=== PATIENT | female | born 1965 | race Caucasian/White ===

== ENCOUNTER 2022-09-27 09:46 | Outpatient (REF) | payer OTHER, SELFPAY ==
[2022-09-27 11:25] LABS: MANUAL DIFF FLAG NO
[2022-09-27 12:11] LABS: Basophils Percent Auto 0.7 % (0-2); Eosinophils Percent Auto 0.5 % (0-4); Hematocrit 37.1 % (37.0-47.0); Hemoglobin 11.9 g/dl (12.0-16.0); Imm Gran Abs Auto 0.02 X10*3/uL (0.00-0.03); Imm Gran Pct Auto 0.3 % (0.0-0.4); Lymphocytes Absolute Auto 2.1 X10*3/uL (1.2-4.9); Lymphocytes Percent Auto 35.8 % (20-40); Mean Corpuscular HGB Conc 32.1 g/dl (31.0-35.0); Mean Corpuscular Hemoglobin 29.8 pg (27.0-33.0); Mean Corpuscular Volume 92.8 fL (80.0-98.0); Mean Platelet Volume 8.9 fL (9.4-12.3); Monocytes Absolute Auto 0.5 X10*3/uL (0.1-1.2); Monocytes Percent Auto 7.9 % (2-11); Neutrophils Absolute Auto 3.3 x10*3/uL (2.0-8.3); Neutrophils Percent Auto 54.8 % (45-73); Platelet Count 341 X10*3/uL (160-400); Red Cell Distribution Width 13.2 % (11.0-16.0)
[2022-09-27 12:53] LABS: Erythrocyte Sedimentation Rate 13 MM/HR (0-20)
[2022-09-27 13:06] LABS: Alanine Aminotransferase 15 U/L (0-31); Albumin Level 4.7 g/dL (3.5-5.0); Alkaline Phosphatase 92 U/L (39-117); Anion Gap 13 (12-20); Aspartate Amino Transferase 18 U/L (5-31); Bilirubin Total 0.6 mg/dL (0.0-1.0); Blood Urea Nitrogen 18 mg/dL (9-16); C Reactive Protein 0.17 mg/dL (< or = 0.50); Calcium 9.7 mg/dL (8.4-10.2); Carbon Dioxide 27 mmol/L (22-29); Chloride 104 mmol/L (96-108); Estimated Glomerular Filt Rate > 60; Glucose Random 90 mg/dL (60-115); Potassium 4.4 mmol/L (3.3-5.1); Sodium 140 mmol/L (135-145); Total Protein 7.1 g/dL (6.5-8.0)
[2022-09-30 08:51] LABS: HBS Num1 0.12 mIU/mL (0-7.99); HBc Num1 0.05 S/CO (0.00-0.79); Hepatitis A Antibody IgM 0.14 Index (0-0.79); Hepatitis B Core Antibody Nonreactive (Nonreactive); Hepatitis B Surface Antigen Negative (Negative); ~HepC Num1 0.08 S/CO (0.00-0.79); ~Hepatitis A Antibody IgM Nonreactive (Nonreactive); ~Hepatitis B Surface Antibody NONREACTIVE (Nonreactive); ~Hepatitis C Antibody Nonreactive (Nonreactive)
[2022-09-30 18:03] LABS: IgA 166 mg/dL (47-310); IgG 829 mg/dL (600-1640); IgM 181 mg/dL (50-300)
[2022-10-01 15:48] LABS: Cyclic Citrullinated Peptide <16 UNITS
[2022-10-01 22:13] LABS: Prot Elec - Albumin 4.6 g/dL (3.8-4.8); Prot Elec - Alpha1 0.3 g/dL (0.2-0.3); Prot Elec - Alpha2 0.8 g/dL (0.5-0.9); Prot Elec - Beta 1 0.4 g/dL (0.4-0.6); Prot Elec - Beta 2 0.3 g/dL (0.2-0.5); Prot Elec - Gamma 0.8 g/dL (0.8-1.7); Prot Elec - Total Protein 7.1 g/dL (6.1-8.1)
== END 2022-09-27 09:47 | disposition home or self-care (01) ==
LOC: HO.LAB 09:46
PROVIDERS: PCP Physician Assistant; Visit Provider Student in an Organized Health Care Education/Training Program
DX: M06.9 Rheumatoid arthritis, unspecified (principal); R76.8 Other specified abnormal immunological findings in serum; Z11.59 Encounter for screening for other viral diseases; Z72.89 Other problems related to lifestyle; Z79.899 Other long term (current) drug therapy
CPT/HCPCS: 36415; 80053; 82784; 84165; 85025; 85652; 86140; 86200; 86334; 86704; 86706; 86709; 86803; 87340

== ENCOUNTER 2022-12-24 08:41 | Outpatient (AMB) | payer OTHER, SELFPAY ==
--- NOTE | 2022-12-24 08:43 | A.OFFVIS_ITS ---
Intake Vital Signs 12/24/22 08:44 Height 5 ft 6 in Weight 134 lb 7.712 oz BMI 21.7 BP 126/74 Blood Pressure Location Rt brachial Position Sitting Pulse 94 Pulse Source Pulse Oximeter Temp 97.3 F Temp Source Skin Pulse Oximetry (%) 98 Intake Visit Reasons: 3 mnts f/u for OA Intake Note: Pt seen today for OA follow up. 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 Feeling about the same. Continues to have pain in her right 1st CMC joint and right 2nd MCP. Recently she has been having mid to low back pain radiating to her buttocks. States that she will follow-up with her orthopedist and will likely get an x-ray and MRI of her back. Initial history: This is a 57-year-old female who presents for evaluation of bilateral hand pain. Patient states that she has diffuse osteoarthritis. She stated that she has been having severe bilateral hand arthritis since 2019. She had numerous surgeries. She had left middle finger PIP joint implant which was revised in 2020 and fused. She also had surgery on her left thumb as well as left carpal tunnel release. She had multiple injections of her bilateral 1st CMC joints. Early July patient developed pain and swelling of her right 2nd MCP, she went to her hand surgeon and had a steroid injection with good relief. Patient states that she has difficulty doing activities. Difficulty grabbing objects. Occasional swelling of her right hypothenar area. Morning stiffness lasts 2 hours. She has bilateral knee pain every once in a while. Rare foot pain. No significant skin rash. She states that her rheumatoid factor level has been increasing over the years [facility] Medical History ADHD Anxiety Arthritis Hyperplastic colon polyp Insomnia Major depression, recurrent Surgical History H/O arthrodesis H/O arthroplasty H/O cervical discectomy History of carpal tunnel release History of dental surgery History of surgery Hx of section Hx of colonoscopy Family History Mother Osteoarthritis COPD (chronic obstructive pulmonary disease) Father Lymphoma Neuropathy Sister Osteoarthritis Social History Household Members: Spouse and Children Alcohol intake: current Alcohol intake frequency: holidays/special occasions only Alcohol type: wine Patient Tobacco Use Status: Former Tobacco user Current occupational status: employed 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 Systems [employer] Reports back pain, Reports arthralgias, Reports joint swelling, Reports limited range of motion and Reports stiffness Physical Exam Vital Signs: Last Vital Signs Temp 97.3 F 12/24/22 08:44 Pulse 94 12/24/22 08:44 BP 126/74 12/24/22 08:44 Pulse Ox 98 12/24/22 08:44 BMI result Body Mass Index 21.7 Const General: cooperative, healthy appearing and comfortable Nutritional Appearance: average body habitus Orientation/consciousness: patient oriented x3 Limitations: no limitations HEENT Head: Yes normocephalic and Yes atraumatic Resp Effort & Inspection: normal respiratory effort and able to speak in complete sentences Back/Spine/Pelvis Other: Bilateral SI joint tenderness Positive straight leg raise test bilaterally Neuro General: patient oriented x3 Extrem Other: Extensive osteoarthritic changes of both hands Results Reviewed Results Reviewed: Labs 06/2022? CBC unremarkable Sed rate 7 CMP unremarkable Uric acid 4.6 Ferritin 65? Iron saturation 35% TSH 0.91? RF 22.3 (elevated) Lyme screen negative Assessment & Plan Assessment & Plan (1) Rheumatoid factor positive: Code(s): R76.8 - Other specified abnormal immunological findings in serum Plan: This is a 57-year-old female who presents for evaluation of bilateral hand pain and positive rheumatoid factor. On exam patient has significant osteoarthritic deformities s/p multiple left hand surgeries, labs showed borderline positive rheumatoid factor with normal inflammatory markers. I do not see any signs of autoimmune rheumatic disease. Picture consistent with hand osteoarthritis. Discussed conservative measures for hand osteoarthritis including occupational therapy, paraffin wax. Patient has utilized all those modalities of treatment in the past. She will consider buying a paraffin wax machine. Follow-up as needed (2) Chronic lower back pain: Code(s): M54.50 - Low back pain, unspecified; G89.29 - Other chronic pain Qualifiers: Back pain laterality: bilateral Sciatica presence: with sciatica Sciatica laterality: bilateral sciatica Qualified Code(s): M54.42 - Lumbago with sciatica, left side; M54.41 - Lumbago with sciatica, right side; G89.29 - Other chronic pain Plan: With some features of sciatica. Patient has an appointment with her orthopedist soon and will request an x-ray and an MRI. Plan I spent 15 minutes reviewing patient's chart, evaluating patientcounseling patient and documenting in the chart Coding Level of Care Code Est Pt Level 3 (56463) Diagnoses Rheumatoid factor positive R76.8 Chronic lower back pain M54.42; M54.41; G89.29 Back pain laterality: bilateral Sciatica presence: with sciatica Sciatica laterality: bilateral sciatica
[2022-12-24 08:44] VITALS: BP 126/74; PULSE 94; TEMP 36.3; O2SAT 98; BMI 21.7
== END 2022-12-24 09:52 | disposition home or self-care (01) ==
PROVIDERS: PCP Physician Assistant; Visit Provider Student in an Organized Health Care Education/Training Program
DX: R76.8 Other specified abnormal immunological findings in serum (principal); M54.42 Lumbago with sciatica, left side; M54.41 Lumbago with sciatica, right side; G89.29 Other chronic pain
CPT/HCPCS: 99213

== ENCOUNTER → 2022-12-24 08:41 | Outpatient (BNVA) | payer OTHER, SELFPAY | PROVIDERS: Visit Provider Student in an Organized Health Care Education/Training Program ==